=== PATIENT | male | born 1965 | race Caucasian/White ===

== ENCOUNTER → 2020-05-02 | Outpatient (CLI) | payer MEDICAID ==
[~2020-05-02] MED LIST: AMLO5TAB4 MT; ASPI-1158 MT; BUPR-102 MT; BUPR300T52 MT; FENTANYL CITRATE/PF 50MCG/ML 2ML VIAL ONE; IOHEXOL-300 100 ML BOTTLE ONE; LAMO200T9 PO; LIDOCAINE HCL 1% 20ML VIAL (Pyxis) INJ ONE; LIP40 MT; METO-385 MT; MIDAZOLAM HCL 2 MG/2 ML VIAL ONE
== END | disposition home or self-care (01) ==
LOC: LAB 09:55
PROVIDERS: ATTEND Specialist
DX: R05 Cough (principal); Z20.828 Contact with and (suspected) exposure to other viral communicable diseases
CPT/HCPCS: C9803; U0003

== ENCOUNTER 2020-05-04 09:06 | Day surgery (SDC) | payer MEDICAID ==
[~2020-05-04] VITALS: Ht 172.7 cm; Wt 126.1 kg
[2020-05-04] MEDS ORDERED: BUPR-102 MT (09:56)
[2020-05-04] MEDS ORDERED: LAMO200T9 PO (09:56)
[2020-05-04] MEDS ORDERED: LIP40 MT (09:56)
[2020-05-04] MEDS ORDERED: AMLO5TAB4 MT (09:56)
[2020-05-04] MEDS ORDERED: BUPR300T52 MT (09:56)
[2020-05-04] MEDS ORDERED: ASPI-1158 MT (09:56)
[2020-05-04] MEDS ORDERED: METO-385 MT (09:56)
[2020-05-04] MEDS ORDERED: ONDANSETRON HCL 4MG/2ML INJ IV PRN (11:15)
[2020-05-04] MEDS ORDERED: HEPARIN SODIUM 1,000 UNIT/1ML VIAL IV ONE (11:15)
[2020-05-04] MEDS ORDERED: ATROPINE SULFATE 1MG/10ML SYR IV PRN (11:15)
[2020-05-04] MEDS ORDERED: ACETAMINOPHEN 325MG TABLET PO PRN (11:15)
== END 2020-05-04 14:05 | disposition home or self-care (01) ==
LOC: CCL 09:06
PROVIDERS: ATTEND Specialist
DX: R07.9 Chest pain, unspecified (principal); I25.10 Atherosclerotic heart disease of native coronary artery without angina pectoris; E78.2 Mixed hyperlipidemia; I10 Essential (primary) hypertension; E66.9 Obesity, unspecified; Z79.899 Other long term (current) drug therapy; Z98.890 Other specified postprocedural states
CPT/HCPCS: 93458; 99152; 99153; C1769; C1887; C1893; J1644; J2250; J3010; J3490; Q9967; G0500

== ENCOUNTER → 2020-05-23 | Outpatient (CLI) | payer MEDICAID ==
[~2020-05-23] MED LIST changes: -FENTANYL CITRATE/PF 50MCG/ML 2ML VIAL ONE; -IOHEXOL-300 100 ML BOTTLE ONE; -LIDOCAINE HCL 1% 20ML VIAL (Pyxis) INJ ONE; -MIDAZOLAM HCL 2 MG/2 ML VIAL ONE
== END | disposition home or self-care (01) ==
LOC: LAB 10:27
PROVIDERS: ATTEND Specialist
DX: R05 Cough (principal); Z20.828 Contact with and (suspected) exposure to other viral communicable diseases
CPT/HCPCS: C9803; U0003

== ENCOUNTER 2020-05-25 08:35 | Inpatient (IN) | payer MEDICAID ==
[~2020-05-25] VITALS: Ht 175.3 cm; Wt 130.8 kg
[2020-05-25] VITALS (22 sets, daily range): BP systolic 91–128; BP diastolic 36–94
[2020-05-25] MEDS ORDERED: FENTANYL CITRATE/PF 50MCG/ML 2ML VIAL ONE ×2 (09:14→10:31)
[2020-05-25] MEDS ORDERED: LIDOCAINE HCL 1% 20ML VIAL (Pyxis) INJ ONE ×2 (09:14→10:32)
[2020-05-25] MEDS ORDERED: MIDAZOLAM HCL 2 MG/2 ML VIAL ONE (09:14)
[2020-05-25] MEDS ORDERED: IODIXANOL 320MG/ML 100 ML BOTTLE IV ONE (09:15)
[2020-05-25] MEDS ORDERED: LEVO100T MT (09:18)
[2020-05-25] MEDS ORDERED: LOSA25TA26 MT (09:18)
[2020-05-25] MEDS ORDERED: ROSU5TAB MT (09:18)
[2020-05-25] MEDS ORDERED: IOHEXOL-300 100 ML BOTTLE ONE (09:52)
[2020-05-25] MEDS ORDERED: HEPARIN SODIUM 1,000 UNIT/1ML VIAL IV ONE (09:58)
[2020-05-25] MEDS ORDERED: ATROPINE SULFATE 1MG/10ML SYR IV PRN (12:00)
[2020-05-25] MEDS ORDERED: ACETAMINOPHEN 325MG TABLET PO PRN (12:00)
[2020-05-25] MEDS ORDERED: ONDANSETRON HCL 4MG/2ML INJ IV PRN (12:00)
[2020-05-25] MEDS ORDERED: CLOPIDOGREL 75MG TABLET ONE (12:09)
[2020-05-25] MEDS ORDERED: ASPIRIN 325MG TABLET ONE (12:09)
[2020-05-26] VITALS: BP 96/59
[2020-05-26 02:02] VITALS: BP 108/68
[2020-05-26 04:01] VITALS: BP 107/65
[2020-05-26 06:00] VITALS: BP 107/61
[2020-05-26 07:26] LABS: BASOPHILS % 0.5 % (0.0-2.0); EOSINOPHILS % 1.7 % (0.0-5.0); HEMATOCRIT. 44.2 % (42.0-52.0); HEMOGLOBIN. 15.1 g/dL (14.0-18.0); LYMPHOCYTES % 23.1 % (20.0-50.0); MEAN CORPUSCULAR VOLUME 87.7 fL (80.0-94.0); MEAN PLATELET VOLUME 7.3 fl (7.4-10.4); MONOCYTES % 8.7 % (2.0-8.0); PLATELET 205 x1000/uL (130-400); RED BLOOD CELL COUNT 5.04 mill/uL (4.7-6.1); RED CELL DISTRIBUTION WIDTH 13.3 % (11.6-14.6)
[2020-05-26 08:01] LABS: CHLORIDE 104 mEq/L (98-107)
[2020-05-26 08:03] VITALS: BP 113/70
[2020-05-26 08:04] VITALS: BP 119/70
[2020-05-26] MEDS ORDERED: CLOPIDOGREL 75MG TABLET PO SCH (09:00)
[2020-05-26] MEDS ORDERED: ASPIRIN 325MG TABLET PO SCH (09:00)
== END 2020-05-26 09:50 | disposition home or self-care (01) | DRG 175 ==
LOC: CCL 08:35 → 3WST 08:36
PROVIDERS: ADMIT Specialist; ATTEND Specialist
PROC: 4A023N7 Measurement of Cardiac Sampling and Pressure, Left Heart, Percutaneous Approach (ICD-10-PCS; principal; 2020-05-25)
PROC: B2111ZZ Fluoroscopy of Multiple Coronary Arteries using Low Osmolar Contrast (ICD-10-PCS; 2020-05-25)
PROC: 027035Z Dilation of Coronary Artery, One Artery with Two Drug-eluting Intraluminal Devices, Percutaneous Approach (ICD-10-PCS; 2020-05-25)
PROC: X2C0361 Extirpation of Matter from Coronary Artery, One Artery using Orbital Atherectomy Technology, Percutaneous Approach, New Technology Group 1 (ICD-10-PCS; 2020-05-25)
DX: I25.119 Atherosclerotic heart disease of native coronary artery with unspecified angina pectoris (principal); I10 Essential (primary) hypertension; E78.5 Hyperlipidemia, unspecified; E66.9 Obesity, unspecified; Z79.899 Other long term (current) drug therapy; Z68.41 Body mass index [BMI] 40.0-44.9, adult; Z88.2 Allergy status to sulfonamides
CPT/HCPCS: 36415; 80048; 85025; 85347; 92933; 93005; 93454; C1725; C1760; C1769; C1874 ×2; C1887; C1893; J1644; J2250; J3010; J3490; Q9967